=== PATIENT | male | born 1985 | race Caucasian/White ===

== ENCOUNTER 2016-03-22 18:47 | Emergency (ER) | payer BC ==
--- NOTE | 2016-03-22 19:59 | RAD ---
History: Chest pain. Comparison: None. Technique: 2 views Findings: The soft tissue and bony structures are unremarkable. The heart size is appropriate. No infiltrate, effusion or pneumothorax is observed. The hilar and mediastinal structures are normal. Impression: 1. Pulmonary hyperinflation. 2. An otherwise negative two-view chest.
[2016-03-22 20:05] LABS: ABSOLUTE NEUTROPHIL COUNT 4.6 K/mm3 (1.8-7.7); BASO % 0.6 % (0.2-1.0); EOS # 0.3 (0.0-0.5); EOS % 3.8 % (0.9-2.9); HEMATOCRIT 45.5 % (32.0-52.0); HEMOGLOBIN 14.6 gm/l (14.0-18.0); IMM NEUT% 0.1 % (0-1); LYMPH # 1.9 (1.0-4.8); LYMPH % 26.4 % (15-45); MEAN CELL VOLUME 90.3 fl (80.0-94.0); MEAN CORPUSCULAR HGB CONC 32.1 g/dl (33.0-37.0); MEAN PLATELET VOLUME 11.1 fl (7.4-10.4); MONO # 0.4 (0.0-0.8); MONO % 5.8 % (4-12); NEUT % 63.3 % (43-75); PLATELET COUNT 246 K/mm3 (130-400); RED CELL DISTRIBUTION WIDTH 12.2 % (11.5-14.5)
[2016-03-22 20:10] LABS: ALB/GLOB RATIO 1.5 (>1.0); ALBUMIN 4.4 gm/dL (3.5-5.7); CALCIUM 9.3 mg/dL (8.6-10.3)
[2016-03-22 20:14] LABS: TROPONIN I < 0.01 ng/ml (0.0-0.06)
[2016-03-22 20:17] LABS: CKMB ISOENZYME 0.5 ng/ml (0.6-6.3)
== END 2016-03-22 18:58 | disposition home or self-care (01) ==
LOC: ED 18:47
DX: R07.9 Chest pain, unspecified (principal)